=== PATIENT | male | born 1990 | race Caucasian/White ===

== ENCOUNTER 2017-01-07 18:29 | Emergency (ER) | payer OTHER ==
[2017-01-07 19:21] LABS: HEMOGLOBIN 14.2 gm/dl (14.0-17.5); RED BLOOD COUNT 5.44 M/UL (4.20-5.50); WHITE BLOOD COUNT 10.6 K/UL (4.5-11.0)
[2017-01-07 19:44] LABS: BUN/CREATININE RATIO 15 (0-10)
== END 2017-01-07 23:34 | disposition home or self-care (01) ==
LOC: ER1 18:29
PROVIDERS: Family Medicine
DX: R07.89 Other chest pain (principal); R61 Generalized hyperhidrosis; F17.210 Nicotine dependence, cigarettes, uncomplicated; Z88.0 Allergy status to penicillin
CPT/HCPCS: 71010; 80053; 82550; 82553; 83874; 84484; 85025; 85379; 93005; 99285

== ENCOUNTER → 2020-10-30 | Outpatient (CLI) | payer OTHER | LOC: KOH-I 10-27 11:30 | DX: M79.605 Pain in left leg (principal) | CPT/HCPCS: 93971 ==